=== PATIENT | female | born 1980 | race Caucasian/White ===

== ENCOUNTER 2020-12-07 09:04 | Emergency (ER) | payer OTHER ==
[2020-12-07 09:15] VITALS: BP 120/74; PULSE 74; TEMP 99; BMI 26.1
== END 2020-12-07 11:01 | disposition home or self-care (01) ==
LOC: FER 09:04
DX: M79.662 Pain in left lower leg (principal)
CPT/HCPCS: 93971-TC; 99284-25

== ENCOUNTER 2023-08-19 13:11 | Emergency (ER) | payer OTHER ==
[2023-08-19 13:19] VITALS: BP 137/83; PULSE 93; RESP 18; TEMP 97.8; BMI 39.9
[2023-08-19 14:42] LABS: BASO % 0.3 % (0-2.0); EOS % 1.1 % (0-4.5); HEMOGLOBIN 12.7 GM/dL (10.7-15.3); LYMPH % 18.8 % (8-40); MCH 29.1 pg (25.7-33.7); MCHC 34.2 g/dl (32.0-36.0); MEAN CELL VOLUME 84.9 fl (80-96); MEAN PLT VOLUME 8.6 fl (7.5-11.1); MONO % 4.9 % (3.8-10.2); NEUT % 74.9 % (42.8-82.8); PLATELET COUNT 250 10^3/uL (134-434); RBC 4.36 M/mm3 (3.60-5.2); RDW 13.6 % (11.6-15.6); WHITE BLOOD COUNT 10.3 K/mm3 (4.0-10.0)
[2023-08-19 15:04] LABS: POTASSIUM 4.1 mmol/L (3.5-5.1)
[2023-08-19 15:06] LABS: ALBUMIN 3.7 g/dl (3.4-5.0); BLOOD UREA NITROGEN 10.6 mg/dL (7-18); CALCIUM 9.6 mg/dL (8.5-10.1)
[2023-08-19 15:09] LABS: CREATININE 0.8 mg/dL (0.55-1.3)
[2023-08-19 15:11] LABS: BILIRUBIN,TOTAL 0.4 mg/dL (0.2-1); TOT PROT 7.6 g/dl (6.4-8.2)
== END 2023-08-19 16:31 | disposition home or self-care (01) ==
LOC: JER 13:11
DX: R07.89 Other chest pain (principal); M25.512 Pain in left shoulder; R42 Dizziness and giddiness; Z20.822 Contact with and (suspected) exposure to COVID-19
CPT/HCPCS: 0241U-QW; 36415; 71046-TC-FY; 80053; 84484; 84703; 85025; 93005; 93010; 99285-25

== ENCOUNTER 2023-08-19 17:19 | Observation (INO) | payer OTHER ==
[2023-08-19] MEDS ORDERED: ASPIRIN 81 MG CHEWABLE TABLETS ONE (20:37)
[2023-08-19] MEDS: ASPIRIN 81 MG CHEWABLE TABLETS PO ONE (20:41)
[2023-08-19 22:24] VITALS: BMI 40.8
[2023-08-20 06:45] LABS: HEMATOCRIT 38.2 % (32.4-45.2); HEMOGLOBIN 12.6 GM/dL (10.7-15.3); MCH 28.5 pg (25.7-33.7); MCHC 32.9 g/dl (32.0-36.0); MEAN CELL VOLUME 86.6 fl (80-96); MEAN PLT VOLUME 8.8 fl (7.5-11.1); PLATELET COUNT 242 10^3/uL (134-434); RBC 4.41 M/mm3 (3.60-5.2); RDW 13.5 % (11.6-15.6)
[2023-08-20 07:02] LABS: POTASSIUM 4.4 mmol/L (3.5-5.1)
[2023-08-20 07:04] LABS: CALCIUM 9.1 mg/dL (8.5-10.1)
[2023-08-20 07:05] LABS: ALBUMIN 3.3 g/dl (3.4-5.0); BLOOD UREA NITROGEN 11.3 mg/dL (7-18)
[2023-08-20 07:07] LABS: CREATININE 0.7 mg/dL (0.55-1.3)
[2023-08-20 07:08] LABS: PHOSPHOROUS 4.6 mg/dL (2.5-4.9)
[2023-08-20 07:09] LABS: BILIRUBIN,TOTAL 0.3 mg/dL (0.2-1); TOT PROT 7.2 g/dl (6.4-8.2)
[2023-08-20 08:48] VITALS: PULSE 79; RESP 18
[2023-08-20] MEDS: ENOXAPARIN NA (PORCINE) 40 MG/0.4 ML DISP.SYRIN SQ SCH (09:06)
[2023-08-20] MEDS: ASPIRIN COATED 81 MG TABLET.EC PO SCH (09:07)
[2023-08-20 14:16] VITALS: BP 118/77; TEMP 98.3
[2023-08-20] MEDS ORDERED: ATORVASTATIN CA 20 MG TABLET (FP) PO SCH (22:00)
== END 2023-08-20 15:18 | disposition home or self-care (01) ==
LOC: JER 17:19 → JERBED 18:24 → J4S 21:49
PROVIDERS: ADMIT Internal Medicine; ATTEND Internal Medicine
PROC: 3E023GC Introduction of Other Therapeutic Substance into Muscle, Percutaneous Approach (ICD-10-PCS; principal; 2023-08-19)
DX: R07.9 Chest pain, unspecified (principal); I47.10 Supraventricular tachycardia, unspecified; E78.5 Hyperlipidemia, unspecified; F98.8 Other specified behavioral and emotional disorders with onset usually occurring in childhood and adolescence; Z29.89 Encounter for other specified prophylactic measures; Z87.891 Personal history of nicotine dependence
CPT/HCPCS: 36415; 80053; 80061; 83036; 83735; 84100; 84439; 84443; 84484; 85027; 85379; 93306-TC; 93351; 99285-25; G0378

== ENCOUNTER 2024-10-29 00:51 | Emergency (ER) | payer BC ==
[2024-10-29 00:59] VITALS: BP 141/88; PULSE 79; RESP 18; TEMP 98.2; BMI 37.8
[2024-10-29] MEDS ORDERED: ACETAMINOPHEN INJECTION 100 ML ONE (02:21)
[2024-10-29] MEDS ORDERED: METOCLOPRAMIDE HCL INJECTION 10 MG/2 ML VIAL ONE (02:21)
[2024-10-29] MEDS: ACETAMINOPHEN 1000 MG/100 ML BAG IVPB ONE (02:35)
[2024-10-29] MEDS: SODIUM CHLORIDE 0.9% 500 ML INFUS.BAG IV ONE (02:35)
[2024-10-29] MEDS: METOCLOPRAMIDE HCL INJECTION 10 MG/2 ML VIAL IVPB ONE (02:36)
[2024-10-29 03:16] LABS: ABSOLUTE IMMATURE GRANULOCYTES 0.02 x10^3/uL (0.0-0.031); BASOPHILS # 0.05 x10^3/uL (0.01-0.08); EOSINOPHIL % 1.4 % (0.7-5.8); EOSINOPHILS # 0.14 x10^3/uL (0.04-0.36); MCHC 32.2 g/dl (32.2-35.5); MEAN CELL VOLUME 87.5 fl (79.4-94.8); MEAN PLT VOLUME 10.5 fl (9.4-12.3); MONOCYTE # 0.67 x10^3/uL (0.24-0.86); MONOCYTE % 6.6 % (4.7-12.5); RDW 13.0 % (12.2-17.1)
[2024-10-29 06:04] LABS: GLUCOSE,RANDOM 103.0 mg/dL (74-106); TOT PROT 8.3 g/dl (6.4-8.2)
[2024-10-29 06:05] LABS: CO2 24.0 mmol/L (21-32)
[2024-10-29 06:07] LABS: ALK PHOS 77.0 U/L (40-150)
[2024-10-29 06:10] LABS: CREATININE 0.81 mg/dL (0.55-1.3); SGOT/AST 13.0 U/L (5-34); SGPT/ALT 15.0 U/L (0-55)
[2024-10-29] MEDS: KETOROLAC TROMETHAMINE 15 MG/ML VIAL IVPUSH ONE (06:12)
[2024-10-29] MEDS ORDERED: KETOROLAC TROMETHAMINE 15 MG/ML VIAL ONE (06:14)
== END 2024-10-29 06:19 | disposition home or self-care (01) ==
LOC: JER 00:51
PROC: 3E033NZ Introduction of Analgesics, Hypnotics, Sedatives into Peripheral Vein, Percutaneous Approach (ICD-10-PCS; principal; 2024-10-29)
PROC: 3E033GC Introduction of Other Therapeutic Substance into Peripheral Vein, Percutaneous Approach (ICD-10-PCS; 2024-10-29)
PROC: 3E0333Z Introduction of Anti-inflammatory into Peripheral Vein, Percutaneous Approach (ICD-10-PCS; 2024-10-29)
PROC: 3E033GC Introduction of Other Therapeutic Substance into Peripheral Vein, Percutaneous Approach (ICD-10-PCS; 2024-10-29)
DX: G43.909 Migraine, unspecified, not intractable, without status migrainosus (principal); M79.10 Myalgia, unspecified site; R29.898 Other symptoms and signs involving the musculoskeletal system; R42 Dizziness and giddiness; R53.1 Weakness
CPT/HCPCS: 36415; 70450-TC; 71046-TC-FY; 80053; 83735; 84484; 84703; 85025; 87637-QW; 93005; 93010; 99285-25